=== PATIENT | female | born 1955 | race Caucasian/White ===

== ENCOUNTER 2016-07-31 22:45 | Emergency (ER) | payer OTHER ==
--- NOTE | 2016-07-31 23:37 | PROVIDER DOCUMENTATION ---
HPI-Abdominal Pain/GI Problem - General Chief Complaint: Female Stated Complaint: FEMALE Time Seen by Provider: 07/31/16 23:33 Source: patient Allergies/Adverse Reactions: Patient Allergies Allergy/AdvReac Type Severity Reaction Status Date / Time Penicillins Allergy Severe ANAPHYLAXIS Verified 12/28/15 08:50 Sulfa (Sulfonamide Allergy SHORTNESS Verified 12/28/15 08:50 Antibiotics) OF BREATH Home Medications: Home Medication List Medication Instructions Recorded Confirmed Last Taken Type Buspirone [Buspar] 10 mg PO BID 04/05/15 12/28/15 04/05/15 09:00 History Escitalopram [Lexapro] 10 mg PO BID 04/05/15 12/28/15 04/05/15 05:00 History Loratadine [Claritin] 10 mg PO DAILY 04/05/15 12/28/15 Unknown History Pnv Cmb#95/Ferrous Fumarate/FA 1 each PO DAILY 04/05/15 12/28/15 04/05/15 09:00 History [ Tablet] Risperidone 2 mg PO DAILY 04/05/15 12/28/15 04/05/15 05:00 History Gentamicin 0.3% Oph Drops 2 drop BOTH EYES TID #1 bottle 12/28/15 Unknown Rx SIMVAstatin [Zocor] 20 mg PO DAILY 12/28/15 12/28/15 Unknown History Ciprofloxacin HCl [Cipro] 500 mg PO BID #10 tablet 08/01/16 Unknown Rx Phenazopyridine HCl [Pyridium] 100 mg PO TID #6 tablet 08/01/16 Unknown Rx - History of Present Illness-ABD Nature of Presenting Problems: 60 yof c/o 3 days left flank pain with urinary frequency. Pt says pain radiates from left flank to groin. Pt has had some nausea but no vomiting. Abdominal Pain Onset Location: reports: LLQ, suprapubic, flank Pain Radiation: reports: groin Quality of Pain: reports: sharp Severity in ED: reports: moderate Onset/Duration: reports: 3 days ago Timing: reports: still present, getting worse Activities at Onset: reports: none Exposure to sick contacts?: No Modifying Factors: improves with: nothing Associated Symptoms: reports: nausea Last BM: this afternoon Dark Stools Present?: reports: none noticed Rectal Bleeding: reports: none # of Diarrhea Episodes: 0 Rectal Pain: reports: none # of Vomiting Episodes: 0 Emesis Description: reports: none Bruising or Bleeding Gums?: No Similar Symptoms Previously?: No Recently seen or treated by another doctor?: No Review of Systems - Adult - REVIEW OF SYSTEMS - ADULT Constitutional: reports: see HPI. denies: no symptoms reported, chills, fever, fatique, night sweats, weight gain, weight loss, other Eyes: reports: no symptoms reported. denies: see HPI, discharge, dry eyes, decreased vision, blurred vision, double vision, eye pain, redness, other Ears, Nose, Mouth & Throat: reports: no symptoms reported. denies: see HPI, ear discharge, ear pain, hearing loss, tinnitus, epistaxis, sinus problem, nose pain, loose teeth, mouth/dental pain, mouth swelling, hoarseness, throat pain, throat swelling, other Cardiovascular: reports: no symptoms reported. denies: see HPI, chest pain, edema, heart murmur, irregular heart rate, orthopnea, palpitations, poor circulation, PND, syncope, other Respiratory: reports: no symptoms reported. denies: see HPI, chronic cough, cough, dyspnea on exertion, excessive sputum production, hemoptysis, pleurisy, shortness of breath, wheezing, other Gastrointestinal: reports: see HPI, abdominal pain, nausea. denies: no symptoms reported, hematemesis, constipation, diarrhea, difficulty swallowing, frequent heartburn, poor appetite, rectal bleeding, vomiting, other Genitourinary: reports: see HPI, frequency, flank pain, urgency. denies: no symptoms reported, dysuria, discharge, frequent UTI's, hematuria, hesitency, incontinence, urinary retention, other Musculoskeletal: reports: no symptoms reported. denies: see HPI, bone pain, back pain, frequent leg cramps, joint pain, joint swelling, muscle aches, muscle weakness, neck pain, other Integumentary: reports: no symptoms reported. denies: see HPI, hives, hair loss , itching, mole changes, nail changes, rash, skin sores/ulcer, skin thickening, other Neurological: reports: no symptoms reported. denies: see HPI, ataxia, dizziness /vertigo, headache/migraines, loss of balance, numbness, paresthesia, seizure, slurred speech, syncope, tremors, other All Other Systems: Reviewed and Negative Past History - Adult - PAST MEDICAL HISTORY-ADULT Review of Records: reports: Old Records Reviewed, Nursing Assessment Review, Medications Reviewed, Social history reviewed & non-contributory. Major Childhood Illnesses: reports: denies history Cardiovascular: reports: denies history Respiratory: reports: denies history Gastrointestinal: reports: denies history Obstetrical/Gynecological: reports: denies history Genitourinary: reports: denies history Musculoskeletal: reports: denies history Neurological: reports: denies history Endocrine/Immune: reports: denies history Other Conditions: reports: denies history - IMMUNIZATION STATUS Childhood Immunizations: See Nurse Assessment Flu Vaccine: See Nurse Assessment - FAMILY HISTORY Family History: reviewed, not pertinent Physical Exam-General - PHYSICAL EXAM-ADULT Initial Vital Signs Reviewed: Yes - CONSTITUTIONAL General Appearance: appears well, alert, no apparent distress. negative: mild distress, moderate distress, severe distress, cachetic, obese, thin, anxious, lethargic, slow to respond, obtunded, combative, other - EYES Eyes: PERRL/EOMI, pink conjunctivae. negative: fundi clear, no AV nicking, anisocoria, conjuctival exudate, EOM palsy, meningismus, pale conjunctivae, photophobia, sclera injected, scleral icterus, subconjunctival hemorrhage, sunken eyes, other - HEAD, EARS, NOSE, MOUTH & THROAT HENMT: normocephalic/atraumatic, moist mucous membranes, normal ENT inspection, TMs normal, pharynx normal. negative: angioedema, dental decay, hearing deficit , pharyngeal erythema, tonsillar exudate, TM abnormal, TM obscurred by cerumen, frontal tenderness, maxillary tenderness, other - NECK Neck: non-tender, full range of motion, supple, normal inspection. negative: Brudzinski's sign, carotid bruit, C-spine tenderness, limited range of motion, lymphadenopathy, meningismus, trachial deviation, tender lateral, tender midline , thyromegaly, other - RESPIRATORY Respiratory: chest non-tender, lungs clear, normal breath sounds, no pleuratic chest pain, no respiratory distress, no accessory muscle use. negative: respiratory distress, decreased breath sounds, accessory muscle use, crackles, rales, rhonchi, stridor, wheezing, dull on percussion, prolonged expiration, pain on inspiration, plerual rub, retractions, splinting, decreased rate, increased rate, crepitus, other - CARDIOVASCULAR Cardiovascular: normal peripheral pulses, regular rate, rhythm, no edema, no gallop, no JVD, no murmur. negative: JVD, bradycardia, tachycardia, diastolic murmur, systolic murmur, gallop/S3, gallop/S4, extra beats, friction rub, irregularly irregular, PMI displaced laterally, other - GASTROINTESTINAL (ABDOMEN) Abdominal Exam: normal bowel sounds, non tender, soft, no organomegaly, no pulsatile mass. negative: abdominal bruit, abnormal bowel sounds, distended, guarding, rigid, rebound, tenderness, hernia, mass, hepatomegaly, spleenomegaly , McBurney's point tenderness, Perez's sign, obturator sign, prominent aortic pulsations, psoas, Rovsing's sign, other - GENITOURINARY Female Genitalia/Pelvic Exam: deferred - LYMPHATIC Lymphatic: no adenopathy - MUSCULOSKELETAL Back Exam: normal inspection, no vertebral tenderness, CVA tenderness. negative : no CVA tenderness, decreased range of motion, ecchymosis, kyphosis, lordosis, muscle spasm, scoliosis, swelling, vertebral tenderness, other Extremity: normal range of motion, non-tender, normal gait, normal inspection, no pedal edema, no calf tenderness, normal capillary refill, pelvis stable. negative: abnormal NV exam, calf tenderness, deformity, erythema, inflammation, joint effusion, pulse deficit, pedal edema, slow capillary refill, swelling, tenderness, other - SKIN Integumentary: normal color, normal turgor, warm/dry - NEUROLOGIC Neurologic: grossly normal - PSYCHIATRIC Psych/Mental Status: oriented x 3 Progress - PLAN OF CARE/RESULTS Progress/Plan/Lab Results: Laboratory Tests 07/31/16 23:25 Urine Source CLEAN CATCH Urine Color YELLOW Urine Clarity CLEAR Urine pH 6.0 Ur Specific [place] 1.010 Urine Protein NEGATIVE Urine Ketones NEGATIVE Urine Blood TRACE Urine Nitrite NEGATIVE Urine Bilirubin NEGATIVE Urine Urobilinogen NORMAL Urine Microscopic RBC <10 Urine WBC TRACE A Urine Microscopic WBC <10 Ur Epithelial Cells <10 Urine Bacteria 1+ Urine Glucose NEGATIVE Orders Category Date Time Status RENAL STONE SEARCH [CT] Stat Exams 07/31/16 23:[address] W/POSS RFLX CULT [URINALYSIS] Stat Lab 07/31/16 23:25 Completed URINE CULTURE [RM] Routine Lab 07/31/16 23:59 Ordered Vital Signs Temp Pulse Resp BP Pulse Ox 07/31/16 23:21 98.5 F 80 18 88/58 95 Penicillins Allergy (Severe, Verified 12/28/15 08:50) ANAPHYLAXIS Sulfa (Sulfonamide Antibiotics) Allergy (Verified 12/28/15 08:50) SHORTNESS OF BREATH Buspirone [Buspar] 10 mg PO BID 04/05/15 Escitalopram [Lexapro] 10 mg PO BID 04/05/15 Loratadine [Claritin] 10 mg PO DAILY 04/05/15 Pnv Cmb#95/Ferrous Fumarate/FA [ Tablet] 1 each PO DAILY 04/05/15 Risperidone 2 mg PO DAILY 04/05/15 Gentamicin 0.3% Oph Drops 2 drop BOTH EYES TID #1 bottle 12/28/15 SIMVAstatin [Zocor] 20 mg PO DAILY 12/28/15 Laboratory 07/31/16 23:25 Urine Source CLEAN CATCH Urine Color YELLOW Urine Clarity CLEAR Urine pH 6.0 Ur Specific [place] 1.010 Urine Protein NEGATIVE Urine Ketones NEGATIVE Urine Blood TRACE Urine Nitrite NEGATIVE Urine Bilirubin NEGATIVE Urine Urobilinogen NORMAL Urine Microscopic RBC <10 Urine WBC TRACE A Urine Microscopic WBC <10 Ur Epithelial Cells <10 Urine Bacteria 1+ Urine Glucose NEGATIVE - CT/MRI 1 CT Study: Renal Stone Impression: Normal (Per radiologist) Departure - Departure Time of Disposition Order: 01:31 DIAGNOSIS: UTI (urinary tract infection) Qualifiers: Urinary tract infection type: site unspecified Hematuria presence: with hematuria Qualified Code(s): N39.0 - Urinary tract infection, site not specified ; R31.9 - Hematuria, unspecified Disposition: HOME 01 Certified Medical Emergency: Emergent Condition: Stable Additional Instructions: ED Follow Up Instructions: You have been treated by a care provider in the Emergency Department. These instructions are being provided to you so you can have an understanding of how to care for yourself upon discharge. Upon discharge from the Emergency Department, you are responsible for making arrangements for follow-up care by a physician of your choice. Take all prescribed medications as directed. Return to the Emergency Department immediately for any new or worsening symptoms. You may call the Physician Referral phone number at [phone] to obtain a list of Physicians who are taking new patients. Prescriptions: Ciprofloxacin HCl [Cipro] 500 mg PO BID #10 tablet Phenazopyridine HCl [Pyridium] 100 mg PO TID #6 tablet Referrals: Ericka Spear [Primary Care Provider] - Attestation - Physician/ RIANA Attestation Patient care was provided by Advanced Practice Provider:: Yes Advanced Practice Provider:: Dez Steiner Advanced Practice Provider documentation review:: The Mid-level provider documentation, treatment plan and medical decision making was reviewed by the physician who agrees with all treatment and medical decision making by the MLP. Physician Attestation - Physician Attestation I, the provider, attest to the following statement:: Nadir Wilson Physician documentation Attestation:: This documentation recorded by the scribe accurately reflects the service I personally performed and the decisions made by me.
[2016-07-31 23:43] LABS: URINE SOURCE CLEAN CATCH
[2016-07-31 23:54] LABS: BILIRUBIN URINE NEGATIVE (NEGATIVE); BLOOD URINE TRACE (NEGATIVE); CLARITY CLEAR (CLEAR); COLOR YELLOW; GLUCOSE URINE NEGATIVE (NEGATIVE); LEUKOCYTES URINE TRACE (NEGATIVE); NITRITE URINE NEGATIVE (NEGATIVE); PROTEIN URINE NEGATIVE (NEGATIVE); UROBILINOGEN URINE NORMAL
[2016-07-31 23:59] LABS: URINE CULTURE PL NEEDED? YES; URINE EPITHELIAL CELLS <10 /HPF (<10); URINE RBC <10 /HPF (<10); URINE WBC <10 /HPF (<10)
[2016-08-01] MEDS ORDERED: PYRIDIUM PO ONE (01:34)
[2016-08-01] MEDS ORDERED: CIPRO PO ONE (01:34)
[2016-08-01 01:55] VITALS: BP 105/60
--- NOTE | 2016-08-01 07:59 | Diag Imaging Result Document ---
PROCEDURE NAME: RENAL STONE SEARCH - 07/31/2016 CT ABDOMEN AND PELVIS: A CT dose reduction protocol was used. COMPARISON: None. FINDINGS: The lung bases are clear and the heart size is normal. No radiodense renal stones. No hydronephrosis or hydroureter. There are cholecystectomy changes. No bowel obstruction or inflammation. Urinary bladder and rectum are normal. Uterus is absent. Bony structures are intact. IMPRESSION: No acute disease. MTDD
== END 2016-08-01 01:53 | disposition home or self-care (01) ==
LOC: P.ED 22:45
DX: N39.0 Urinary tract infection, site not specified (principal); R31.9 Hematuria, unspecified; R10.9 Unspecified abdominal pain; R10.30 Lower abdominal pain, unspecified; R10.32 Left lower quadrant pain; R35.0 Frequency of micturition; R11.0 Nausea; R39.15 Urgency of urination; Z79.899 Other long term (current) drug therapy
CPT/HCPCS: 74176; 81001; 87088